=== PATIENT | female | born 1980 | race Caucasian/White ===

== ENCOUNTER 2019-02-17 18:26 | Emergency (ER) | payer BC ==
[2019-02-17] MEDS ORDERED: Sodium Chloride 0.9% 10 ML Syringe FLUSH PRN (19:34)
[2019-02-17] MEDS ORDERED: Ondansetron 4 MG/2 ML SDV IVPUSH ONE (19:39)
[2019-02-17] MEDS ORDERED: HYDROmorphone 1 MG/ML Syringe IVPUSH ONE (19:39)
--- NOTE | 2019-02-17 20:09 | CT ---
CT abdomen and pelvis Technique: Multiple axial sections were obtained from above the dome of the diaphragm inferiorly through the pubic symphysis. Intravenous and oral contrast not utilized. Study has been performed as a ureteral stone protocol. Findings: Kidneys show no abnormal calcifications. No ureteral dilatation or ureteral stone is seen. Visualized lung bases show nothing acute. Noncontrast appearance of the liver and spleen appear within normal limits. Adrenal glands show no nodule. Pancreas is within normal limits. Aorta shows no aneurysm. No retroperitoneal adenopathy is seen. Gallbladder shows no calcified gallstones. No mesenteric abnormalities are seen. No pelvic mass or adenopathy is seen. No free fluid or inflammatory change is seen. Appendix is seen and appears normal in size. Bone window settings were reviewed which appear within normal limits for the patient's age. Small fat-containing umbilical hernia is noted. Impression: 1. No renal calculi, ureteral dilatation or ureteral stone is seen. 2. Nothing acute is appreciated on noncontrast CT study of the abdomen and pelvis. Diagnostic code #2
[2019-02-17] MEDS ORDERED: Ketorolac 30 MG/ML SDV IVPUSH ONE (21:22)
--- NOTE | 2019-02-17 21:26 | EDM.PDOC ---
ED HPI GENERAL MEDICAL PROBLEM - General Chief Complaint: Abdominal Pain Stated Complaint: ABD PAIN/VOMITING Time Seen by Provider: 02/17/19 21:20 Source of Information: Reports: Patient History Limitations: Reports: No Limitations - History of Present Illness INITIAL COMMENTS - FREE TEXT/NARRATIVE: 38-year-old female presents for evaluation and treatment of low back and lower abdominal pain. Patient reports that she had sudden onset of severe sharp low back and lower abdominal pain. States it starts in her low back radiates into her right hip, right lower quadrant into her right groin. She states she's never had anything like this before. Reports movement seems to worsen the pain. Reports associated decreased appetite, nausea and vomiting. Denies any fevers, chills, dysuria or hematuria. Last BM was this morning. States the pain is sharp , stabbing and rates it a "12"/10. Previous abdominal surgeries include a hysterectomy with bilateral salpingectomy. States she still has her ovaries. Abdominal Pain Score (Numeric/FACES): 10 - Related Data Allergies Allergy/AdvReac Type Severity Reaction Status Date / Time amoxicillin Allergy Chest Verified 02/17/19 18:53 Tightness latex Allergy Rash Verified 02/17/19 18:52 Sulfa (Sulfonamide Allergy Swollen Verified 02/17/19 18:53 Antibiotics) Tongue Home Meds: Home Meds Escitalopram [Lexapro] 20 mg PO DAILY 02/17/19 [History] Gabapentin [Neurontin] 300 mg PO DAILY PRN 02/17/19 [History] Ondansetron [Zofran ODT] 4 mg PO Q6H PRN #12 tab.dis 02/17/19 [Rx] busPIRone [Buspar] 10 mg PO DAILY PRN 02/17/19 [History] Past Medical History HEENT History: Reports: Other (See Below) Other HEENT History: glasses, near sighted Respiratory History: Reports: Asthma 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: , Other (See Below) Other PROJECTION TECHNICIAN History: dnc Musculoskeletal History: Reports: Other (See Below) Other Musculoskeletal History: l ankle pain, back pain Psychiatric History: Reports: Anxiety - Past Surgical History GI Surgical History: Reports: Other (See Below) Other GI Surgeries/Procedures: pancreatitis Social & Family History - Tobacco Use Smoking Status *Q: Never Smoker Second Hand Smoke Exposure: No - Caffeine Use Caffeine Use: Reports: Coffee - Recreational Drug Use Recreational Drug Use: No ED ROS GENERAL - Review of Systems Review Of Systems: See Below Constitutional: Denies: Fever, Chills GI/Abdominal: Reports: Abdominal Pain (right lower abdomen), Decreased Appetite , Nausea, Vomiting. Denies: Constipation, Diarrhea : Reports: Flank Pain (right). Denies: Dysuria, Hematuria Musculoskeletal: Reports: Back Pain ED EXAM, GI/ABD - Physical Exam Exam: See Below Exam Limited By: No Limitations General Appearance: Alert, WD/WN, No Apparent Distress Throat/Mouth: Normal Inspection, Normal Voice, No Airway Compromise Respiratory/Chest: No Respiratory Distress, Lungs Clear, Normal Breath Sounds Cardiovascular: Normal Peripheral Pulses, Regular Rate, Rhythm, No Murmur GI/Abdominal Exam: Other (Negative psoas and obturator signs. Minor discomfort at McBurney's point. No pain with heel percussion.) Neurological: Alert, Oriented, Normal Cognition Psychiatric: Normal Affect, Normal Mood Skin Exam: Warm, Dry, Normal Color Course - Vital Signs Last Recorded V/S: Last Vital Signs Temp 99.1 F 02/17/19 18:51 Pulse 86 02/17/19 18:51 Resp 20 02/17/19 18:51 BP 136/99 H 02/17/19 18:51 Pulse Ox 97 02/17/19 18:51 - Orders/Labs/Meds Labs: Laboratory Tests 02/17/19 02/17/19 02/17/19 Range/Units 20:02 20:02 20:43 WBC 10.80 H (3.98-10.04) K/mm3 RBC 5.19 (3.98-5.22) M/mm3 Hgb 14.9 (11.2-15.7) gm/L Hct 43.8 (34.1-44.9) % MCV 84.4 (79.4-94.8) fl MCH 28.7 (25.6-32.2) pg MCHC 34.0 (32.2-35.5) g/dl RDW Std Deviation 40.6 (36.4-46.3) fL Plt Count 416 H (182-369) K/mm3 MPV 8.4 L (9.4-12.3) fl Neut % (Auto) 74.7 H (34.0-71.1) % Lymph % (Auto) 18.1 L (19.3-51.7) % Terry % (Auto) 6.3 (4.7-12.5) % Eos % (Auto) 0.4 L (0.7-5.8) Baso % (Auto) 0.2 (0.1-1.2) % Neut # (Auto) 8.07 H (1.56-6.13) K/mm3 Lymph # (Auto) 1.96 (1.18-3.74) K/mm3 Terry # (Auto) 0.68 H (0.24-0.36) K/mm3 Eos # (Auto) 0.04 (0.04-0.36) K/mm3 Baso # (Auto) 0.02 (0.01-0.08) K/mm3 Sodium 136 (136-145) mEq/L Potassium 3.8 (3.5-5.1) mEq/L Chloride 103 (98-107) mEq/L Carbon Dioxide 26 (21-32) mEq/L Anion Gap 10.8 (5-15) BUN 7 (7-18) mg/dL Creatinine 0.7 (0.55-1.02) mg/dL Est Cr Clr Drug Dosing 87.87 mL/min Estimated GFR (MDRD) > 60 (>60) mL/min BUN/Creatinine Ratio 10.0 L (14-18) Glucose 97 (74-106) mg/dL Calcium 8.4 L (8.5-10.1) mg/dL Total Bilirubin 0.3 (0.2-1.0) mg/dL AST 13 L (15-37) U/L ALT 23 (14-59) U/L Alkaline Phosphatase 93 (46-116) U/L C-Reactive Protein < 0.2 (<1.0) mg/dL Total Protein 7.6 (6.4-8.2) g/dl Albumin 3.6 (3.4-5.0) g/dl Globulin 4.0 gm/dL Albumin/Globulin Ratio 0.9 L (1-2) Urine Color Yellow (Yellow) Urine Appearance Slt cloudy H (Clear) Urine pH 8.0 (5.0-8.0) Ur Specific [place] 1.020 (1.005-1.030) Urine Protein Negative (Negative) Urine Glucose (UA) Negative (Negative) Urine Ketones Negative (Negative) Urine Occult Blood Trace-intact H (Negative) Urine Nitrite Negative (Negative) Urine Bilirubin Negative (Negative) Urine Urobilinogen 0.2 (0.2-1.0) Ur Leukocyte Esterase Negative (Negative) Urine RBC 0-5 (0-5) /hpf Urine WBC 0-5 (0-5) /hpf Ur Epithelial Cells 0-5 (0-5) /hpf Amorphous Sediment Few H (NOT SEEN) /hpf Urine Bacteria Few (FEW) /hpf Urine Mucus Few (FEW) /hpf Meds: Medications Discontinued Medications Generic Name Dose Route Start Last Admin Trade Name Freq PRN Reason Stop Dose Admin Hydromorphone HCl 1 mg 02/17/19 19:39 02/17/19 20:15 Dilaudid IVPUSH 02/17/19 19:40 1 mg ONETIME ONE Administration Ketorolac Tromethamine 30 mg 02/17/19 21:22 02/17/19 21:42 Toradol IVPUSH 02/17/19 21:23 30 mg ONETIME ONE Administration Ondansetron HCl 4 mg 02/17/19 19:39 02/17/19 20:14 Zofran IVPUSH 02/17/19 19:40 4 mg ONETIME ONE Administration Sodium Chloride 10 ml 02/17/19 19:34 02/17/19 20:14 Saline Flush FLUSH 10 ml ASDIRECTED PRN Administration Keep Vein Open - Radiology Interpretation Free Text/Narrative:: CT abdomen and pelvis Technique: Multiple axial sections were obtained from above the dome of the diaphragm inferiorly through the pubic symphysis. Intravenous and oral contrast not utilized. Study has been performed as a ureteral stone protocol. Findings: Kidneys show no abnormal calcifications. No ureteral dilatation or ureteral stone is seen. Visualized lung bases show nothing acute. Noncontrast appearance of the liver and spleen appear within normal limits. Adrenal glands show no nodule. Pancreas is within normal limits. Aorta shows no aneurysm. No retroperitoneal adenopathy is seen. Gallbladder shows no calcified gallstones. No mesenteric abnormalities are seen. No pelvic mass or adenopathy is seen. No free fluid or inflammatory change is seen. Appendix is seen and appears normal in size. Bone window settings were reviewed which appear within normal limits for the patient's age. Small fat-containing umbilical hernia is noted. Impression: 1. No renal calculi, ureteral dilatation or ureteral stone is seen. 2. Nothing acute is appreciated on noncontrast CT study of the abdomen and pelvis. - Re-Assessments/Exams Free Text/Narrative Re-Assessment/Exam: 02/17/19 21:20 Patient reports pain relief with the Dilaudid. I reviewed the labs and imaging with the patient. I believe this is likely from constipation. Recommendations given. Discharge instructions as documented. Departure - Departure Time of Disposition: 21:23 Disposition: Home, Self-Care 01 Condition: Fair Clinical Impression: Constipation - Discharge Information *PRESCRIPTION DRUG MONITORING PROGRAM REVIEWED*: No *COPY OF PRESCRIPTION DRUG MONITORING REPORT IN PATIENT MARIA ELENA: No Prescriptions: Ondansetron [Zofran ODT] 4 mg PO Q6H PRN #12 tab.dis PRN Reason: Nausea Instructions: Constipation, Adult, [id number] Referrals: PCP,None [Primary Care Provider] - Forms: ED Department Discharge Additional Instructions: you were given medication in the ER that can affect your ability to drive and operate machinery. Do not drive or operate machinery within 10 hours of taking prescription narcotic pain medication. Recommend purchasing a bottle of magnesium citrate, this is available over-the- counter. Drink half the bottle, if you do not have a large bowel movement drink the second half the bottle Zofran 1 tab sublingual every 6 hours as a for nausea. [id number] Tylenol or Motrin as needed for pain relief. Follow up with her primary care provider if not much better Wednesday or Wednesday next week. Please return to the ER if your symptoms change or worsen.
== END 2019-02-17 21:44 | disposition home or self-care (01) ==
LOC: JD.ED 18:26
DX: K59.00 Constipation, unspecified (principal); F41.9 Anxiety disorder, unspecified; Z88.1 Allergy status to other antibiotic agents; Z91.040 Latex allergy status; Z88.2 Allergy status to sulfonamides; Z79.899 Other long term (current) drug therapy
CPT/HCPCS: 36415; 74176; 80053; 81001; 85025; 86140; 96374; 96375; 99284; J1170; J1885; J2405

== ENCOUNTER 2020-09-13 15:27 | Emergency (ER) | payer BC ==
[2020-09-13] MEDS ORDERED: Sodium Chloride 0.9% 10 ML Syringe FLUSH PRN (16:26)
[2020-09-13] MEDS ORDERED: Ondansetron 4 MG/2 ML SDV IVPUSH ONE (16:26)
[2020-09-13] MEDS ORDERED: Sodium Chloride 0.9% 1,000 ML IV STA (16:26)
[2020-09-13] MEDS ORDERED: HYDROmorphone 1 MG/ML Syringe IVPUSH ONE (16:27)
--- NOTE | 2020-09-13 18:06 | EDM.PDOC ---
ED HPI GENERAL MEDICAL PROBLEM - General Chief Complaint: Back Pain or Injury Stated Complaint: LOW BACK PAIN/ABD PAIN AND HIGH BLOOD PRESSURE Time Seen by Provider: 09/13/20 15:53 Source of Information: Reports: Patient History Limitations: Reports: No Limitations - History of Present Illness INITIAL COMMENTS - FREE TEXT/NARRATIVE: The patient presents with right flank and right lower abdominal pain. This started a few hours before arrival. She also has some nausea but no vomiting. She has no dysuria or hematuria. She has no history of kidney stones. She did have her gallbladder removed and a hysterectomy. She still has ovaries. She has no fever, chills, cough, congestion, chest pain, shortness of breath. Onset: Gradual Duration: Hour(s): Location: Reports: Abdomen, Back Quality: Reports: Sharp Severity: Moderate Improves with: Reports: None Worsens with: Reports: None Associated Symptoms: Reports: Nausea/Vomiting. Denies: Chest Pain, Cough, Fever/Chills, Headaches, Shortness of Breath back/abd Pain Score (Numeric/FACES): 10 - Related Data Allergies Allergy/AdvReac Type Severity Reaction Status Date / Time amoxicillin Allergy Chest Verified 09/13/20 15:57 Tightness latex Allergy Rash Verified 09/13/20 15:57 Sulfa (Sulfonamide Allergy Swollen Verified 09/13/20 15:57 Antibiotics) Tongue Home Meds: Home Meds Escitalopram [Lexapro] 20 mg PO DAILY 02/17/19 [History] Gabapentin [Neurontin] 300 mg PO DAILY PRN 02/17/19 [History] Ondansetron [Zofran ODT] 4 mg PO Q6H PRN #12 tab.dis 02/17/19 [Rx] busPIRone [Buspar] 10 mg PO DAILY PRN 02/17/19 [History] Past Medical History HEENT History: Reports: Other (See Below) Other HEENT History: glasses, near sighted Respiratory History: Reports: Asthma 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: , Other (See Below) Other ASSESSMENT NURSE History: dnc Musculoskeletal History: Reports: Other (See Below) Other Musculoskeletal History: l ankle pain, back pain Psychiatric History: Reports: Anxiety - Past Surgical History GI Surgical History: Reports: Other (See Below) Other GI Surgeries/Procedures: pancreatitis Social & Family History - Tobacco Use Tobacco Use Status *Q: Never Tobacco User - Caffeine Use Caffeine Use: Reports: Coffee - Recreational Drug Use Recreational Drug Use: No ED ROS GENERAL - Review of Systems Review Of Systems: See Below Constitutional: Reports: No Symptoms HEENT: Reports: No Symptoms Respiratory: Reports: No Symptoms Cardiovascular: Reports: No Symptoms Endocrine: Reports: No Symptoms GI/Abdominal: Reports: Abdominal Pain, Nausea. Denies: Diarrhea, Vomiting : Reports: No Symptoms Musculoskeletal: Reports: Back Pain ED EXAM,LOWER BACK PAIN/INJURY - Physical Exam Exam: See Below Exam Limited By: No Limitations General Appearance: Alert, No Apparent Distress Ears: Normal External Exam Nose: Normal Inspection Head: Atraumatic, Normocephalic Neck: Normal Inspection Respiratory/Chest: No Respiratory Distress, Lungs Clear, Normal Breath Sounds Cardiovascular: Regular Rate, Rhythm, No Edema, No Murmur GI/Abdominal: Soft, No Organomegaly, No Mass, Tender (Pain upon palpation to the right lower abdomen) Back Exam: CVA Tenderness (R) Extremities: Normal Inspection Neurological: Alert, No Motor/Sensory Deficits, Oriented x 3 Course - Vital Signs Last Recorded V/S: Last Vital Signs Temp 97.4 F 09/13/20 15:54 Pulse 103 H 09/13/20 15:54 Resp 18 09/13/20 15:54 BP 133/97 H 09/13/20 15:54 Pulse Ox 100 09/13/20 15:54 - Orders/Labs/Meds Orders: Active Orders 24 hr Category Date Time Status Peripheral IV Care [RC] . DIRECTED Care 09/13/20 16:26 Active Sodium Chloride 0.9% [Saline Flush] Med 09/13/20 16:26 Active 10 ml FLUSH ASDIRECTED PRN ED Antiemetic Medication Reflex [OM.PC] Stat Oth 09/13/20 16:26 Ordered Peripheral IV Insertion Adult [OM.PC] Stat Oth 09/13/20 16:26 Ordered Medication Orders Sodium Chloride (Sodium Chloride 0.9% 10 Ml Syringe) 10 ml FLUSH ASDIRECTED PRN PRN Reason: Keep Vein Open Last Admin: 09/13/20 16:55 Dose: 10 ml Documented by: ISABELLA Labs: Laboratory Tests 09/13/20 09/13/20 09/13/20 Range/Units 16:26 17:00 17:00 WBC 14.53 H (3.98-10.04) K/mm3 RBC 5.14 (3.98-5.22) M/mm3 Hgb 14.8 (11.2-15.7) gm/dl Hct 44.6 (34.1-44.9) % MCV 86.8 (79.4-94.8) fl MCH 28.8 (25.6-32.2) pg MCHC 33.2 (32.2-35.5) g/dl RDW Std Deviation 42.2 (36.4-46.3) fL Plt Count 422 H (182-369) K/mm3 MPV 8.3 L (9.4-12.3) fl Neut % (Auto) 71.4 H (34.0-71.1) % Lymph % (Auto) 21.3 (19.3-51.7) % Casey % (Auto) 6.2 (4.7-12.5) % Eos % (Auto) 0.5 L (0.7-5.8) Baso % (Auto) 0.3 (0.1-1.2) % Neut # (Auto) 10.39 H (1.56-6.13) K/mm3 Lymph # (Auto) 3.09 (1.18-3.74) K/mm3 Casey # (Auto) 0.90 H (0.24-0.36) K/mm3 Eos # (Auto) 0.07 (0.04-0.36) K/mm3 Baso # (Auto) 0.04 (0.01-0.08) K/mm3 Manual Slide Review Sodium 143 (136-145) mEq/L Potassium 4.0 (3.5-5.1) mEq/L Chloride 106 (98-107) mEq/L Carbon Dioxide 27 (21-32) mEq/L Anion Gap 14.0 (5-15) BUN 13 (7-18) mg/dL Creatinine 0.8 (0.55-1.02) mg/dL Est Cr Clr Drug Dosing 75.41 mL/min Estimated GFR (MDRD) > 60 (>60) mL/min BUN/Creatinine Ratio 16.3 (14-18) Glucose 93 (74-106) mg/dL Calcium 8.6 (8.5-10.1) mg/dL Total Bilirubin 0.2 (0.2-1.0) mg/dL AST 18 (15-37) U/L ALT 39 (14-59) U/L Alkaline Phosphatase 83 (46-116) U/L Total Protein 7.5 (6.4-8.2) g/dl Albumin 3.7 (3.4-5.0) g/dl Globulin 3.8 gm/dL Albumin/Globulin Ratio 1.0 (1-2) Lipase 86 (73-393) U/L HCG, Qual (NEGATIVE) Urine Color Yellow (Yellow) Urine Appearance Clear (Clear) Urine pH 6.5 (5.0-8.0) Ur Specific [place] > or = 1.030 (1.005-1.030) Urine Protein Negative (Negative) Urine Glucose (UA) Trace H (Negative) Urine Ketones Negative (Negative) Urine Occult Blood Trace-lysed H (Negative) Urine Nitrite Negative (Negative) Urine Bilirubin Negative (Negative) Urine Urobilinogen 0.2 (0.2-1.0) Ur Leukocyte Esterase Negative (Negative) Urine RBC 0-5 (0-5) /hpf Urine WBC 0-5 (0-5) /hpf Ur Squamous Epith Cells 0-5 (0-5) /hpf Urine Bacteria Few (FEW) /hpf Urine Mucus Not seen (FEW) /hpf 09/13/20 Range/Units 17:00 WBC (3.98-10.04) K/mm3 RBC (3.98-5.22) M/mm3 Hgb (11.2-15.7) gm/dl Hct (34.1-44.9) % MCV (79.4-94.8) fl MCH (25.6-32.2) pg MCHC (32.2-35.5) g/dl RDW Std Deviation (36.4-46.3) fL Plt Count (182-369) K/mm3 MPV (9.4-12.3) fl Neut % (Auto) (34.0-71.1) % Lymph % (Auto) (19.3-51.7) % Casey % (Auto) (4.7-12.5) % Eos % (Auto) (0.7-5.8) Baso % (Auto) (0.1-1.2) % Neut # (Auto) (1.56-6.13) K/mm3 Lymph # (Auto) (1.18-3.74) K/mm3 Casey # (Auto) (0.24-0.36) K/mm3 Eos # (Auto) (0.04-0.36) K/mm3 Baso # (Auto) (0.01-0.08) K/mm3 Manual Slide Review Sodium (136-145) mEq/L Potassium (3.5-5.1) mEq/L Chloride (98-107) mEq/L Carbon Dioxide (21-32) mEq/L Anion Gap (5-15) BUN (7-18) mg/dL Creatinine (0.55-1.02) mg/dL Est Cr Clr Drug Dosing mL/min Estimated GFR (MDRD) (>60) mL/min BUN/Creatinine Ratio (14-18) Glucose (74-106) mg/dL Calcium (8.5-10.1) mg/dL Total Bilirubin (0.2-1.0) mg/dL AST (15-37) U/L ALT (14-59) U/L Alkaline Phosphatase (46-116) U/L Total Protein (6.4-8.2) g/dl Albumin (3.4-5.0) g/dl Globulin gm/dL Albumin/Globulin Ratio (1-2) Lipase (73-393) U/L HCG, Qual Negative (NEGATIVE) Urine Color (Yellow) Urine Appearance (Clear) Urine pH (5.0-8.0) Ur Specific [place] (1.005-1.030) Urine Protein (Negative) Urine Glucose (UA) (Negative) Urine Ketones (Negative) Urine Occult Blood (Negative) Urine Nitrite (Negative) Urine Bilirubin (Negative) Urine Urobilinogen (0.2-1.0) Ur Leukocyte Esterase (Negative) Urine RBC (0-5) /hpf Urine WBC (0-5) /hpf Ur Squamous Epith Cells (0-5) /hpf Urine Bacteria (FEW) /hpf Urine Mucus (FEW) /hpf Meds: Medications Generic Name Dose Route Start Last Admin Trade Name Freq PRN Reason Stop Dose Admin Sodium Chloride 10 ml 09/13/20 16:26 09/13/20 16:55 Sodium Chloride 0.9% 10 Ml Syringe FLUSH 10 ml ASDIRECTED PRN Administration Keep Vein Open Discontinued Medications Generic Name Dose Route Start Last Admin Trade Name Freq PRN Reason Stop Dose Admin Hydromorphone HCl 1 mg 09/13/20 16:27 09/13/20 16:55 Hydromorphone 1 Mg/Ml Syringe IVPUSH 09/13/20 16:28 1 mg ONETIME ONE Administration Sodium Chloride 1,000 mls @ 1,000 mls/hr 09/13/20 16:26 09/13/20 16:55 Normal Saline IV 09/13/20 17:25 1,000 mls/hr .BOLUS STA Administration Ondansetron HCl 4 mg 09/13/20 16:26 09/13/20 16:55 Ondansetron 4 Mg/2 Ml Sdv IVPUSH 09/13/20 16:27 4 mg ONETIME ONE Administration - Re-Assessments/Exams Free Text/Narrative Re-Assessment/Exam: 09/13/20 18:05 I ordered an IV NS 1L bolus, zofran 4mg IV, dilaudid 1mg IV, labs, UA and a CT of her abdomen and pelvis without contrast. 09/13/20 18:06 Her WBC was elevated at 14.53. Her CMP looks good. Her lipase was normal. Her HCG is negative. I am waiting on the CT report. 09/13/20 18:[address] of his abdomen and pelvis shows minimal nonobstructing renal calculus on the right side. No ureteral dilatation or ureteral stone is seen. Irregular fatty infiltration within the liver. Nothing acute is definitely appreciated on noncontrast CT study of the abdomen and pelvis. I am waiting on the UA. 09/13/20 19:10 Her UA shows no UTI. I am not sure of the cause of her pain. There is nothing internal. She has pain meds at home. I will give her a shot of toradol and discharge her home. Departure - Departure Time of Disposition: 19:15 Disposition: Home, Self-Care 01 Condition: Good Clinical Impression: Right flank pain Abdominal pain Qualifiers: Abdominal location: right lower quadrant Qualified Code(s): R10.31 - Right lower quadrant pain - Discharge Information *PRESCRIPTION DRUG MONITORING PROGRAM REVIEWED*: Not Applicable *COPY OF PRESCRIPTION DRUG MONITORING REPORT IN PATIENT MARIA ELENA: Not Applicable Referrals: Lizbeth Villarreal, [facility] [Primary Care Provider] - 1 Week Forms: ED Department Discharge Additional Instructions: Take your medication as prescribed. Follow up with Theo Villarreal or one of her partners next week. Please return if you are worse. Sepsis Event Note (ED) - Evaluation Sepsis Screening Result: No Definite Risk - Focused Exam Vital Signs: Vital Signs Temp Pulse Resp BP Pulse Ox 09/13/20 15:54 97.4 F 103 H 18 133/97 H 100 - My Orders Last 24 Hours: My Active Orders 09/13/20 16:26 Peripheral IV Care [RC] . DIRECTED Sodium Chloride 0.9% [Saline Flush] 10 ml FLUSH ASDIRECTED PRN ED Antiemetic Medication Reflex [OM.PC] Stat Peripheral IV Insertion Adult [OM.PC] Stat - Assessment/Plan Last 24 Hours: My Active Orders 09/13/20 16:26 Peripheral IV Care [RC] . DIRECTED Sodium Chloride 0.9% [Saline Flush] 10 ml FLUSH ASDIRECTED PRN ED Antiemetic Medication Reflex [OM.PC] Stat Peripheral IV Insertion Adult [OM.PC] Stat
--- NOTE | 2020-09-13 18:07 | CT ---
CT abdomen and pelvis Technique: Multiple axial sections were obtained from above the dome of the diaphragm inferiorly through the pubic symphysis. Intravenous and oral contrast was not utilized. Study has been performed as a ureteral stone protocol. Comparison: Previous CT abdomen and pelvis study of 02/17/19. Findings: Small nonobstructing stone is seen within the right kidney. No ureteral dilatation or ureteral stone is seen. Several small calcifications are seen within the pelvis most likely representing phleboliths. Visualized lung bases show nothing acute. Liver shows irregular fatty infiltration. Spleen size is normal. Adrenal glands show no nodule. Pancreas is within normal limits. Surgical clips are seen from prior cholecystectomy. Abdominal aorta shows no aneurysm. No retroperitoneal adenopathy or mesenteric abnormalities are seen. Appendix is not visualized with certainty. No pelvic mass or adenopathy is seen. No free fluid or inflammatory change is appreciated. Small fat-containing umbilical hernia is noted. Bone window settings were reviewed which show no acute osseous finding. Impression: 1. Minimal nonobstructing renal calculus on the right side. No ureteral dilatation or ureteral stone is seen. 2. Irregular fatty infiltration within the liver. 3. Nothing acute is definitely appreciated on noncontrast CT study of the abdomen and pelvis. Diagnostic code #2
[2020-09-13] MEDS ORDERED: Ketorolac 30 MG/ML SDV IVPUSH ONE (19:10)
== END 2020-09-13 19:30 | disposition home or self-care (01) ==
LOC: JD.ED 15:27
DX: R10.31 Right lower quadrant pain (principal); J45.909 Unspecified asthma, uncomplicated; Z88.0 Allergy status to penicillin; Z91.040 Latex allergy status; Z88.2 Allergy status to sulfonamides; Z79.899 Other long term (current) drug therapy
CPT/HCPCS: 36415; 74176; 80053; 81001; 83690; 84703; 85025; 96374; 96375; 99284; J1170; J1885; J2405; J7030

== ENCOUNTER 2021-06-15 12:51 | Emergency (ER) | payer BC ==
--- NOTE | 2021-06-15 14:28 | EDM.PDOC ---
ED HPI GENERAL MEDICAL PROBLEM - General Chief Complaint: Headache Stated Complaint: HEADACHE NAUSEA Time Seen by Provider: 06/15/21 13:07 Source of Information: Reports: Patient History Limitations: Reports: No Limitations - History of Present Illness INITIAL COMMENTS - FREE TEXT/NARRATIVE: 40-year-old female presents the emergency department today with complaints of nausea and headache as well as body aches and cough that started approximately 3 days ago. She states she is also noted pain in her bilateral ears. Patient denies any fever, chills, nausea, vomiting, diarrhea or sore throat. She denies any shortness of breath. She denies any urinary symptoms. States she does have a history of thrombocytopenia for which she sees oncology services, . States she was recently started on iron supplementation 4 days ago and noted that she had some nausea that started then. States she had been taking the iron tabs with vitamin C as well as food however still continued to have nausea when taking the medication. She states that she stopped taking the medication today. She also notes that her daughter recently tested positive for Covid 2 days ago and she has been around her daughter for the past couple of weeks. She states she has had her influenza vaccine however has not had a Covid vaccine. States she has not been taking any Tylenol or ibuprofen for the headache discomfort as she states it comes and goes. Headache pain is located in the frontal area. Denies any blurred vision, double vision or ringing in her ears. Denies any vomiting. She states her stools are black since starting iron supplementation. Headache Pain Score (Numeric/FACES): 5 - Related Data Allergies Allergy/AdvReac Type Severity Reaction Status Date / Time amoxicillin Allergy Chest Verified 06/15/21 13:08 Tightness latex Allergy Rash Verified 06/15/21 13:08 Sulfa (Sulfonamide Allergy Swollen Verified 06/15/21 13:08 Antibiotics) Tongue Home Meds: Home Meds Escitalopram [Lexapro] 20 mg PO DAILY 02/17/19 [History] Gabapentin [Neurontin] 300 mg PO DAILY PRN 02/17/19 [History] Ondansetron [Zofran ODT] 4 mg PO Q6H PRN #12 tab.dis 02/17/19 [Rx] busPIRone [Buspar] 10 mg PO DAILY PRN 02/17/19 [History] Past Medical History HEENT History: Reports: Other (See Below) Other HEENT History: glasses, near sighted Respiratory History: Reports: Asthma 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: , Other (See Below) Other FIELD RADIO OPERATOR History: dnc Musculoskeletal History: Reports: Other (See Below) Other Musculoskeletal History: l ankle pain, back pain Psychiatric History: Reports: Anxiety - Past Surgical History GI Surgical History: Reports: Other (See Below) Other GI Surgeries/Procedures: pancreatitis Oncologic Surgical History: Reports: Bone Marrow Aspiration Social & Family History - Tobacco Use Tobacco Use Status *Q: Never Tobacco User - Caffeine Use Caffeine Use: Reports: Coffee ED ROS GENERAL - Review of Systems Review Of Systems: Comprehensive ROS is negative, except as noted in HPI. - Physical Exam Exam: See Below Exam Limited By: No Limitations General Appearance: Alert, WD/WN, No Apparent Distress Ears: Normal External Exam, Normal Canal, Hearing Grossly Normal, Normal TMs Nose: Normal Inspection, Normal Mucosa Throat/Mouth: Normal Inspection, Normal Lips, Normal Teeth, Normal Gums, Normal Oropharynx, Normal Voice, No Airway Compromise Head Exam: Atraumatic, Normocephalic Neck: Normal Inspection, Supple. No: Lymphadenopathy (L), Lymphadenopathy (R) Respiratory/Chest: No Respiratory Distress, Lungs Clear, Normal Breath Sounds, No Accessory Muscle Use, Chest Non-Tender Cardiovascular: Normal Peripheral Pulses, Regular Rate, Rhythm, No Edema, No Murmur GI/Abdominal: Normal Bowel Sounds, Soft, Non-Tender, No Distention (Female) Exam: Deferred Rectal (Female) Exam: Deferred Neuro Exam (Abbreviated): Alert, Oriented, Normal Cognition Back Exam: Normal Inspection Extremities: Normal Inspection Psychiatric: Normal Affect, Normal Mood Skin Exam: Warm, Dry, Intact, Normal Color, No Rash Course - Vital Signs Text/Narrative:: As stated above, patient presents with flulike symptoms. Upon physical exam, the patient was awake alert and oriented and does not appear to be in any distress. Tympanic membranes are unremarkable. Oropharynx is unremarkable. I did not appreciate any cervical or tonsillar lymphadenopathy. Lung sounds are clear, heart rate is regular, abdomen is soft nontender. Patient will be swabbed for influenza and Covid. I do not feel any further lab studies are warranted at this time. Last Recorded V/S: Last Vital Signs Temp 98.1 F 01/02/22 13:05 Pulse 101 H 06/15/21 13:05 Resp 18 06/15/21 13:05 BP 140/92 H 06/15/21 13:05 Pulse Ox 98 06/15/21 13:05 - Orders/Labs/Meds Labs: Laboratory Tests 06/15/21 Range/Units 13:40 Influenza Type A RNA Negative (NEGATIVE) Influenza Type B RNA Negative (NEGATIVE) SARS-CoV-2 RNA ([facility]) Negative (NEGATIVE) - Re-Assessments/Exams Free Text/Narrative Re-Assessment/Exam: 06/15/21 14:33 Patient's Covid and influenza swabs come back as negative. She will be discharged home with recommendations that she take Tylenol or ibuprofen for the headache discomfort. At this time I discussed the results with the patient. Recommended that if she has worsening of symptoms over the next couple of days that she should likely be retested for Covid. She states she will follow-up with her oncologist first thing tomorrow regarding intolerance of iron supplementation. He did mention that should she not be able to tolerate oral supplementation she likely will need to have iron infusions. Departure - Departure Time of Disposition: 14:46 Disposition: Home, Self-Care 01 Condition: Good Clinical Impression: Nausea Headache Qualifiers: Headache type: unspecified Headache chronicity pattern: acute headache Intractability: intractable Qualified Code(s): R51.9 - Headache, unspecified - Discharge Information Instructions: General Headache Without Cause, [id number] Referrals: Lizbeth Villarreal [facility] [Primary Care Provider] - Forms: ED Department Discharge Additional Instructions: You were seen in the emergency department today with complaints of intermittent headache and intermittent nausea. Also recently exposed to Covid. Your physical exam was essentially unremarkable. You were tested for Covid and influenza and both these did come back negative. As discussed, if your symptoms worsen over the next couple of days I strongly recommend you be retested for Covid. Otherwise suspect as we talked that nausea is likely due to your iron supplementation. Be sure to follow-up with your oncologist first thing tomorrow regarding this. For your headache discomfort recommend taking Tylenol 650 mg every 4 hours as needed or ibuprofen 600 mg every 6-8 hours as needed. Recommend that if you are not better in 10 days time that you should probably follow-up with your primary care provider for reevaluation. Should your condition worsen or change, do not hesitate returning to the emergency department. Sepsis Event Note (ED) - Evaluation Sepsis Screening Result: No Definite Risk - Focused Exam Vital Signs: Vital Signs Temp Pulse Resp BP Pulse Ox 06/15/21 13:05 98.1 F 101 H 18 140/92 H 98
[2021-06-15 14:29] LABS: CORONAVIRUS COVID-19 NAA NEGATIVE (NEGATIVE)
== END 2021-06-15 14:51 | disposition home or self-care (01) ==
LOC: JD.ED 12:51
DX: R51.9 Headache, unspecified (principal); R11.0 Nausea; J45.909 Unspecified asthma, uncomplicated; Z20.822 Contact with and (suspected) exposure to COVID-19; Z88.0 Allergy status to penicillin; Z91.040 Latex allergy status; Z88.2 Allergy status to sulfonamides; Z79.899 Other long term (current) drug therapy
CPT/HCPCS: 0240U; 99284

== ENCOUNTER 2021-11-26 19:51 | Emergency (ER) | payer BC ==
[2021-11-26] MEDS ORDERED: Sodium Chloride 0.9% 10 ML Syringe FLUSH PRN (20:31)
[2021-11-26] MEDS ORDERED: HYDROmorphone 0.5 MG/0.5 ML Syringe IVPUSH ONE ×2 (20:32→22:12)
[2021-11-26] MEDS ORDERED: Ondansetron 4 MG/2 ML SDV IVPUSH ONE (20:32)
[2021-11-26] MEDS ORDERED: Sodium Chloride 0.9% 1,000 ML IV SCH (20:45)
== END 2021-11-26 22:56 | disposition home or self-care (01) ==
LOC: JD.ED 19:51
DX: R10.31 Right lower quadrant pain (principal); R19.7 Diarrhea, unspecified; Z88.0 Allergy status to penicillin; Z91.040 Latex allergy status; Z88.2 Allergy status to sulfonamides
CPT/HCPCS: 36415; 74176; 74176-26; 81001; 85025; 86140; 96361; 96374; 96375; 96376; 99284-25; J1170; J2405; J3490; J7030

== ENCOUNTER 2022-05-21 19:44 | Emergency (ER) | payer BC ==
[2022-05-21] MEDS ORDERED: Benzonatate 100 MG Cap PO ONE (21:07)
[2022-05-21] MEDS ORDERED: Albuterol 0.083% 2.5 MG/3 ML Neb Soln NEB ONE (21:08)
== END 2022-05-21 23:03 | disposition home or self-care (01) ==
LOC: JD.ED 19:44
DX: R05.9 Cough, unspecified (principal); R11.10 Vomiting, unspecified; B97.4 Respiratory syncytial virus as the cause of diseases classified elsewhere; J45.909 Unspecified asthma, uncomplicated; Z88.0 Allergy status to penicillin; Z91.040 Latex allergy status; Z88.2 Allergy status to sulfonamides; Z86.16 Personal history of COVID-19
CPT/HCPCS: 71046; 94640; 99284; A9270

== ENCOUNTER 2024-11-03 10:57 | Emergency (ER) | payer BC | END 2024-11-03 14:29 | disposition home or self-care (01) | LOC: JD.ED 10:57 | DX: G97.1 Other reaction to spinal and lumbar puncture (principal); J45.909 Unspecified asthma, uncomplicated; Z88.1 Allergy status to other antibiotic agents; Z91.040 Latex allergy status; Z88.2 Allergy status to sulfonamides; Z79.899 Other long term (current) drug therapy; Z79.51 Long term (current) use of inhaled steroids; Z79.811 Long term (current) use of aromatase inhibitors; Z86.16 Personal history of COVID-19; Z90.49 Acquired absence of other specified parts of digestive tract; Y84.4 Aspiration of fluid as the cause of abnormal reaction of the patient, or of later complication, without mention of misadventure at the time of the procedure | CPT/HCPCS: 62273; 99283-25 ==

== ENCOUNTER 2024-11-06 11:16 | Emergency (ER) | payer BC ==
[2024-11-06] MEDS ORDERED: Naloxone 0.4 MG/ML SDV IVPUSH PRN ×2 (11:45→14:06)
[2024-11-06] MEDS: HYDROmorphone 0.5 MG/0.5 ML Syringe IVPUSH ONE ×2 (12:00→14:15)
[2024-11-06] MEDS: Sodium Chloride 0.9% 1,000 ML IV ONE (12:02)
[2024-11-06] MEDS: Sodium Chloride 0.9% 10 ML Syringe FLUSH ONE (12:02)
[2024-11-06 12:08] LABS: BASOPHILS PERCENT AUTO 0.2 % (0.0-1.0); EOSINOPHILS ABSOLUTE AUTO 0.1 K/mm3 (0.0-0.4); EOSINOPHILS PERCENT AUTO 0.7 % (0.0-6.0); HEMATOCRIT 45.9 % (37.0-47.0); HEMOGLOBIN 15.1 gm/dl (12.0-16.0); IMMATURE GRAN ABSOLUTE AUTO 0.08 K/mm3 (0.00-0.05); IMMATURE GRAN PERCENT AUTO 0.7 % (0.0-0.4); LYMPHOCYTES ABSOLUTE AUTO 2.9 K/mm3 (1.0-4.8); LYMPHOCYTES PERCENT AUTO 23.8 % (24.0-44.0); MEAN CORPUSCULAR HEMOGLOBIN 28.4 pg (28.0-32.0); MEAN CORPUSCULAR HGB CONC 32.9 g/dl (32.0-36.0); MEAN CORPUSCULAR VOLUME 86.3 fl (83.0-99.0); MEAN PLATELET VOLUME 8.2 fl (9.4-12.3); MONOCYTES ABSOLUTE AUTO 0.9 K/mm3 (0.0-0.8); MONOCYTES PERCENT AUTO 7.2 % (0.0-8.0); NEUTROPHILS ABSOLUTE AUTO 8.2 K/mm3 (1.8-7.7); NEUTROPHILS PERCENT AUTO 67.4 % (41.0-71.0); PLATELET COUNT,PLT 364 K/mm3 (150-400); RED BLOOD CELL COUNT 5.32 M/mm3 (4.10-5.30); WHITE BLOOD CELL COUNT,WBC 12.21 K/mm3 (3.9-11.3)
[2024-11-06] MEDS: Iopamidol 612 MG/ML 100 ML Bottle IVPUSH ONE (12:20)
[2024-11-06 12:31] LABS: A/G RATIO 0.8 (1-2); ALANINE AMINOTRANSFERASE,ALT 51 U/L (14-59); ALBUMIN 3.4 g/dl (3.4-5.0); ALKALINE PHOSPHATASE 101 U/L (46-116); ANION GAP 11.7 (5-15); ASPARTATE AMNIOTRANSFERASE,AST 15 U/L (15-37); BILIRUBIN TOTAL 0.3 mg/dL (0.2-1.0); BLOOD UREA NITROGEN,BUN 11 mg/dL (7-18); BUN/CREATININE RATIO 13.8 (14-18); C-REACTIVE PROTEIN 0.21 mg/dL (<0.30); CALCIUM 8.5 mg/dL (8.5-10.1); CARBON DIOXIDE,CO2 29 mEq/L (21-32); CHLORIDE,CL 99 mEq/L (98-107); CREATININE 0.8 mg/dL (0.55-1.02); EST CRCL DRUG DOSING (CG) 72.45 mL/min; ESTIMATED GFR 94 mL/min (>60); GLUCOSE RANDOM 93 mg/dL (70-99); LIPASE 35 U/L (16-77); POTASSIUM,K 3.7 mEq/L (3.5-5.1); PROTEIN TOTAL,TP 7.6 g/dl (6.4-8.2); SODIUM,NA 136 mEq/L (136-145)
[2024-11-06 12:32] LABS: TROPONIN I HIGH SENSITIVITY < 4 pg/mL (<=51)
[2024-11-06 12:32] LABS: APPEARANCE,URINE CLEAR (Clear); BILIRUBIN,URINE NEGATIVE (Negative); COLOR,URINE LIGHT YELLOW (Yellow); GLUCOSE,URINE NEGATIVE (Negative); KETONES,URINE NEGATIVE (Negative); LEUKOCYTE ESTERASE,URINE NEGATIVE (Negative); NITRITE,URINE NEGATIVE (Negative); OCCULT BLOOD,URINE NEGATIVE (Negative); PH,URINE 6.5 (5.0-8.0); PROTEIN,URINE NEGATIVE (Negative); UROBILINOGEN,URINE 0.2 (0.2-1.0)
[2024-11-06 12:35] LABS: INR 0.97; PROTHROMBIN TIME 10.3 SECONDS (9.7-12.0)
[2024-11-06 12:37] LABS: PTT,PARTIAL THROMBOPLSTIN TIME 25.3 SECONDS (21.7-31.4)
[2024-11-06 12:40] LABS: LACTIC ACID 0.7 mmol/L (0.4-2.0)
== END 2024-11-06 14:48 | disposition home or self-care (01) ==
LOC: JD.ED 11:16
DX: M54.50 Low back pain, unspecified (principal); J45.909 Unspecified asthma, uncomplicated; Z88.0 Allergy status to penicillin; Z88.2 Allergy status to sulfonamides; Z91.040 Latex allergy status; Z88.8 Allergy status to other drugs, medicaments and biological substances; Z79.899 Other long term (current) drug therapy; Z86.16 Personal history of COVID-19; Z87.891 Personal history of nicotine dependence; Z90.49 Acquired absence of other specified parts of digestive tract
CPT/HCPCS: 36415; 70450; 74177; 80053; 81003; 83605; 83690; 84484; 85025; 85610; 85730; 86140; 96361; 96374; 96376; 99284; J7030; Q9967; 99283

== ENCOUNTER 2024-11-17 16:09 | Emergency (ER) | payer BC ==
[2024-11-17] MEDS: Iopamidol 612 MG/ML 100 ML Bottle IVPUSH ONE (17:55)
[2024-11-17] MEDS: Sodium Chloride 0.9% 10 ML Syringe FLUSH ONE (17:55)
[2024-11-17] MEDS: Ketorolac 30 MG/ML SDV IVPUSH ONE (18:13)
[2024-11-17] MEDS: Ondansetron 4 MG/2 ML SDV IVPUSH ONE (18:13)
[2024-11-17] MEDS: Acetaminophen 325 MG Tab PO ONE (18:13)
[2024-11-17] MEDS: Sodium Chloride 0.9% 1,000 ML IV ONE (18:13)
[2024-11-17 18:17] LABS: BASOPHILS PERCENT AUTO 0.5 % (0.0-1.0); EOSINOPHILS PERCENT AUTO 0.5 % (0.0-6.0); HEMATOCRIT 43.2 % (37.0-47.0); HEMOGLOBIN 14.5 gm/dl (12.0-16.0); IMMATURE GRAN ABSOLUTE AUTO 0.03 K/mm3 (0.00-0.05); IMMATURE GRAN PERCENT AUTO 0.3 % (0.0-0.4); LYMPHOCYTES ABSOLUTE AUTO 1.7 K/mm3 (1.0-4.8); LYMPHOCYTES PERCENT AUTO 18.9 % (24.0-44.0); MEAN CORPUSCULAR HEMOGLOBIN 28.1 pg (28.0-32.0); MEAN CORPUSCULAR HGB CONC 33.6 g/dl (32.0-36.0); MEAN CORPUSCULAR VOLUME 83.7 fl (83.0-99.0); MEAN PLATELET VOLUME 8.1 fl (9.4-12.3); MONOCYTES ABSOLUTE AUTO 0.5 K/mm3 (0.0-0.8); MONOCYTES PERCENT AUTO 5.4 % (0.0-8.0); NEUTROPHILS ABSOLUTE AUTO 6.6 K/mm3 (1.8-7.7); NEUTROPHILS PERCENT AUTO 74.4 % (41.0-71.0); PLATELET COUNT,PLT 403 K/mm3 (150-400); RED BLOOD CELL COUNT 5.16 M/mm3 (4.10-5.30); WHITE BLOOD CELL COUNT,WBC 8.87 K/mm3 (3.9-11.3)
[2024-11-17 18:23] LABS: APPEARANCE,URINE CLEAR (Clear); BILIRUBIN,URINE NEGATIVE (Negative); COLOR,URINE YELLOW (Yellow); GLUCOSE,URINE NEGATIVE (Negative); KETONES,URINE NEGATIVE (Negative); LEUKOCYTE ESTERASE,URINE NEGATIVE (Negative); NITRITE,URINE NEGATIVE (Negative); OCCULT BLOOD,URINE TRACE-INTACT (Negative); PROTEIN,URINE NEGATIVE (Negative); UROBILINOGEN,URINE 0.2 (0.2-1.0)
[2024-11-17 18:25] LABS: BACTERIA,URINE MODERATE /hpf (FEW); MUCUS,URINE FEW /hpf (FEW); WBC,URINE 0-5 /hpf (0-5)
[2024-11-17 18:27] LABS: BARBITURATE SCREEN,URINE NEGATIVE (CUTOFF=200); BENZODIAZEPINES SCREEN,URINE NEGATIVE (CUTOFF=150); BUPRENORPHINE SCREEN,URINE NEGATIVE (CUTOFF=10); METHADONE SCREEN, URINE NEGATIVE (CUTOFF=200); METHAMPHETAMINES SCREEN, URINE NEGATIVE (CUTOFF=500); OXYCODONE SCREEN,URINE NEGATIVE (CUT0FF=100); THC SCREEN,URINE 20 NG/ML NEGATIVE (CUTOFF=50)
[2024-11-17 18:29] LABS: AMPHETAMINES SCREEN, URINE NEGATIVE (CUTOFF=500)
[2024-11-17 18:43] LABS: A/G RATIO 0.8 (1-2); ALBUMIN 3.2 g/dl (3.4-5.0); BILIRUBIN TOTAL 0.2 mg/dL (0.2-1.0); BUN/CREATININE RATIO 7.5 (14-18); CALCIUM 8.7 mg/dL (8.5-10.1); CREATININE 0.8 mg/dL (0.55-1.02); EST CRCL DRUG DOSING (CG) 72.45 mL/min; MAGNESIUM 2.2 mg/dL (1.8-2.4); PROTEIN TOTAL,TP 7.4 g/dl (6.4-8.2)
[2024-11-17 19:06] LABS: INR 1.03; PROTHROMBIN TIME 10.9 SECONDS (9.7-12.0)
== END 2024-11-17 18:58 | disposition home or self-care (01) ==
LOC: JD.ED 16:09
DX: R10.31 Right lower quadrant pain (principal); Z88.0 Allergy status to penicillin; Z91.040 Latex allergy status; Z88.2 Allergy status to sulfonamides; Z91.041 Radiographic dye allergy status; Z79.899 Other long term (current) drug therapy; Z86.16 Personal history of COVID-19
CPT/HCPCS: 36415; 74177; 80053; 80306; 81001; 83735; 84484; 85025; 85610; 96374; 96375; 99284; A9270; J1885; J2405; J7030; Q9967

== ENCOUNTER 2025-03-26 19:02 | Emergency (ER) | payer BC ==
[2025-03-26] MEDS: Ketorolac 30 MG/ML SDV IVPUSH ONE (19:52)
[2025-03-26 19:59] LABS: BASOPHILS ABSOLUTE AUTO 0.0 K/mm3 (0.0-0.2); BASOPHILS PERCENT AUTO 0.5 % (0.0-1.0); EOSINOPHILS ABSOLUTE AUTO 0.1 K/mm3 (0.0-0.4); EOSINOPHILS PERCENT AUTO 0.9 % (0.0-6.0); IMMATURE GRAN ABSOLUTE AUTO 0.02 K/mm3 (0.00-0.05); IMMATURE GRAN PERCENT AUTO 0.2 % (0.0-0.4); LYMPHOCYTES ABSOLUTE AUTO 2.7 K/mm3 (1.0-4.8); LYMPHOCYTES PERCENT AUTO 31.6 % (24.0-44.0); MEAN PLATELET VOLUME 8.6 fl (9.4-12.3); MONOCYTES ABSOLUTE AUTO 0.7 K/mm3 (0.0-0.8); MONOCYTES PERCENT AUTO 7.6 % (0.0-8.0); NEUTROPHILS ABSOLUTE AUTO 5.0 K/mm3 (1.8-7.7); NEUTROPHILS PERCENT AUTO 59.2 % (41.0-71.0); NRBC ABSOLUTE 0.00 (0.00-0.02); NRBC PERCENT 0.0 % (0.0-0.2); PLATELET COUNT,PLT 353 K/mm3 (150-400); RED BLOOD CELL COUNT 4.98 M/mm3 (4.10-5.30); WHITE BLOOD CELL COUNT,WBC 8.52 K/mm3 (3.9-11.3)
[2025-03-26] MEDS: Sodium Chloride 0.9% 10 ML Syringe FLUSH PRN (19:59)
[2025-03-26 20:26] LABS: A/G RATIO 1.0 (1-2); ALANINE AMINOTRANSFERASE,ALT 22 U/L (14-59); ASPARTATE AMNIOTRANSFERASE,AST 13 U/L (15-37); BILIRUBIN TOTAL 0.3 mg/dL (0.2-1.0); BLOOD UREA NITROGEN,BUN 10 mg/dL (7-18); CARBON DIOXIDE,CO2 26 mEq/L (21-32); CHLORIDE,CL 106 mEq/L (98-107); CREATININE 0.7 mg/dL (0.55-1.02); EST CRCL DRUG DOSING (CG) 98.01 mL/min; ESTIMATED GFR 111 mL/min (>60); GLUCOSE RANDOM 76 mg/dL (70-99); POTASSIUM,K 3.3 mEq/L (3.5-5.1); PROTEIN TOTAL,TP 7.3 g/dl (6.4-8.2); SODIUM,NA 140 mEq/L (136-145)
[2025-03-26 20:30] LABS: TROPONIN I HIGH SENSITIVITY < 4 pg/mL (<=51)
== END 2025-03-26 22:18 | disposition home or self-care (01) ==
LOC: JD.ED 19:02
DX: R07.89 Other chest pain (principal); J45.909 Unspecified asthma, uncomplicated; Z86.16 Personal history of COVID-19; Z90.49 Acquired absence of other specified parts of digestive tract; Z88.0 Allergy status to penicillin; Z88.2 Allergy status to sulfonamides; Z88.4 Allergy status to anesthetic agent; Z91.040 Latex allergy status; Z79.899 Other long term (current) drug therapy
CPT/HCPCS: 36415; 71045; 71045-26; 80053; 83690; 84484; 84703; 85025; 93005; 93010; 96374; 99284; 99285-25; A9270-GY; J1885